=== PATIENT | male | born 1940 ===

== ENCOUNTER 2020-05-16 13:16 | Observation (INO) ==
[2020-05-16 14:01] LABS: Basophils % 1.2 % (0.0-0.8); Eosinophils # 0.1 10*3/uL (0.0-0.87); Eosinophils % 3.1 % (0.00-10.9); Hematocrit 34.6 VOL% (42.0-52.0); Hemoglobin 11.6 GM/DL (14.0-18.0); Immature Granulocytes % 1.2 %; Immature Granulocytes Absolute 0.03 #; Lymphocytes # 1.5 10*3/uL (1.4-4.0); Lymphocytes % 59.5 % (21.2-54.2); Mean Corpuscular HGB Conc 33.5 GM/DL (32-36); Mean Corpuscular Volume 104.5 FL (87-102); Monocytes % 3.9 % (1.7-12.7); Neutrophils % 31.1 % (38.7-73.9); Platelet Count 155 T/CUMM (130-400); Red Blood Count 3.31 MC/CUMM (3.8-5.5); Red Cell Distribution Width 13.3 % (9.3-17.3); White Blood Count 2.6 T/CUMM (4-12)
[2020-05-16 14:11] LABS: Albumin 3.2 G/DL (3.4-5.0); Bilirubin,Total 0.4 MG/DL (0.2-1.0); Calcium 8.7 MG/DL (8.5-10.1); Osmolality,Calculated 267.2 MOS/KG (273-304); Potassium 3.7 MMOL/L (3.5-5.1); Total Protein 7.6 G/DL (6.4-8.3)
[2020-05-16 14:14] LABS: INR 1.1; PT Patient Result 11.9 SECS (9.8-11.9); Partial Thromboplastin Time 33.3 SECS (23.9-33.8)
[2020-05-16 14:47] LABS: Band Neutrophils 1 % (0-10); Eosinophils 3 % (0-10); Lymphocytes 65 % (20-55); Metamyelocytes 1 %; Segmented Neutrophils 26 % (50-85); Total Cells Counted 100
[2020-05-16 14:48] LABS: Hypochromasia 1+; Macrocytosis 2+; Platelet Estimate Normal; Toxic Granulation 1+
[2020-05-16 14:49] LABS: Reactive Lymphocytes 3+
[2020-05-16] MEDS ORDERED: DEXTROSE 50% 25 GM/50 ML VIAL IV PRN (16:08)
[2020-05-16] MEDS ORDERED: GLUCAGON 1 MG VIAL IM PRN (16:08)
[2020-05-16 16:37] LABS: % Iron Saturation 34.5 % (18-50)
[2020-05-16 16:42] LABS: Folate 16.4 NG/ML (5.38-24.0)
[2020-05-16] MEDS: ENOXAPARIN 30 MG/0.3 ML SYRINGE SUBCUT SCH (16:50)
[2020-05-16 17:02] LABS: ABG Base Excess 1.7 MMOL/L (-2.5-2.5); ABG HCO3 25.9 MMOL/L (20-26); ABG Oxygen Saturation 98.4 % (95-100); ABG PCO2 41.5 MM HG (35-48); ABG PH 7.412 (7.35-7.45); ABG TCO2 23.3 MMOL/L (23-27)
[2020-05-16] MEDS: SODIUM CHLORIDE 0.9% 1,000 ML IV SCH (17:50)
[2020-05-16] MEDS: MIDODRINE 5 MG TABLET PO SCH (23:33)
[2020-05-17] MEDS: SODIUM CHLORIDE 0.9% 1,000 ML IV SCH ×4 (02:28→14:25)
[2020-05-17 08:19] LABS: Eosinophils # 0.1 10*3/uL (0.0-0.87); Eosinophils % 3.4 % (0.00-10.9); Hematocrit 27.3 VOL% (42.0-52.0); Immature Granulocytes % 0.7 %; Immature Granulocytes Absolute 0.02 #; Lymphocytes # 1.7 10*3/uL (1.4-4.0); Mean Corpuscular HGB Conc 33.3 GM/DL (32-36); Mean Corpuscular Volume 104.6 FL (87-102); Mean Platelet Volume 10.3 FL (9.6-12.0); Monocytes % 4.7 % (1.7-12.7); Neutrophils % 33.2 % (38.7-73.9); Platelet Count 184 T/CUMM (130-400); Red Cell Distribution Width 13.4 % (9.3-17.3)
[2020-05-17 08:27] LABS: Red Blood Count 2.61 MC/CUMM (3.8-5.5)
[2020-05-17 08:28] LABS: Hemoglobin 9.1 GM/DL (14.0-18.0)
[2020-05-17 08:39] LABS: Eosinophils 4 % (0-10); Hypochromasia 1+; Lymphocytes 53 % (20-55); Microcytosis 1+; Platelet Estimate Adequate; Segmented Neutrophils 39 % (50-85); Total Cells Counted 100
[2020-05-17] MEDS: MIDODRINE 5 MG TABLET PO SCH ×3 (09:04→21:12)
[2020-05-17] MEDS: PANTOPRAZOLE 40 MG TABLET PO SCH (09:04)
[2020-05-17 09:39] LABS: Calcium 8.5 MG/DL (8.5-10.1); Potassium 3.7 MMOL/L (3.5-5.1)
[2020-05-17] MEDS: ENOXAPARIN 30 MG/0.3 ML SYRINGE SUBCUT SCH (16:11)
[2020-05-18] MEDS: SODIUM CHLORIDE 0.9% 1,000 ML IV SCH ×2 (01:31→09:13)
[2020-05-18 06:56] LABS: Basophils % 0.6 % (0.0-0.8); Eosinophils # 0.1 10*3/uL (0.0-0.87); Eosinophils % 2.9 % (0.00-10.9); Hemoglobin 8.6 GM/DL (14.0-18.0); Immature Granulocytes % 0.9 %; Immature Granulocytes Absolute 0.03 #; Lymphocytes # 1.8 10*3/uL (1.4-4.0); Lymphocytes % 51.6 % (21.2-54.2); Mean Corpuscular HGB Conc 33.1 GM/DL (32-36); Mean Corpuscular Volume 104.8 FL (87-102); Mean Platelet Volume 10.1 FL (9.6-12.0); Monocytes % 3.5 % (1.7-12.7); Neutrophils % 40.5 % (38.7-73.9); Platelet Count 188 T/CUMM (130-400); Red Blood Count 2.48 MC/CUMM (3.8-5.5); Red Cell Distribution Width 13.3 % (9.3-17.3); White Blood Count 3.4 T/CUMM (4-12)
[2020-05-18 07:13] LABS: Calcium 8.2 MG/DL (8.5-10.1); Osmolality,Calculated 271.8 MOS/KG (273-304); Potassium 3.7 MMOL/L (3.5-5.1)
[2020-05-18 07:24] LABS: Hypochromasia 1+; Microcytosis 1+; Platelet Estimate Adequate
[2020-05-18] MEDS: MIDODRINE 5 MG TABLET PO SCH ×2 (09:11→14:30)
[2020-05-18] MEDS: PANTOPRAZOLE 40 MG TABLET PO SCH (09:11)
[2020-05-18 11:52] VITALS: BP 121/75
== END 2020-05-18 15:40 | disposition home health service (06) ==
LOC: N.ED 13:16 → N.EDINP 13:16 → SUATTDRO 16:08 → N.TELEN 17:01
PROVIDERS: ADMIT Internal Medicine; ATTEND Internal Medicine